=== PATIENT | male | born 2000 | race Hispanic/Latino ===

== ENCOUNTER 2019-12-31 08:22 | Emergency (ER) | payer OTHER, SELFPAY ==
[~2019-12-31 08:22] MED LIST: Azithromycin 250 MG TAB ONE
[2019-12-31] MEDS ORDERED: Gentamicin 80 MG/2 ML VIAL ONE (09:23)
[2019-12-31] MEDS ORDERED: Ibuprofen 800 MG TAB ONE (09:23)
[2019-12-31] MEDS ORDERED: Acetaminophen 500 MG TAB ONE (09:23)
[2019-12-31] MEDS ORDERED: Azithromycin 500 MG VIAL ONE (09:23)
[2019-12-31] MEDS ORDERED: Azithromycin 250 MG TAB ONE (09:24)
[2019-12-31 10:20] LABS: Bilirubin Negative (Negative); Blood, Urine Moderate (Negative); Clarity Slightly Cloudy (Clear); Glucose, Urine (Dipstick) Negative (Negative); Leukocyte Moderate (Negative); Nitrite Negative (Negative); Protein, Urine (Dipstick) Trace mg/dL (Neg-Trace); Urobilinogen 0.2 mg/dL (Less than 2)
[2019-12-31 10:23] LABS: Bacteria/HPF 2+ HPF (None Seen); WBC/HPF Greater Than 50 HPF (0-3)
== END 2019-12-31 10:07 | disposition home or self-care (01) ==
LOC: MADERS 08:22
DX: N34.1 Nonspecific urethritis (principal); J45.909 Unspecified asthma, uncomplicated
CPT/HCPCS: 81003; 81015; 96372; 99283; J0456; J1580

== ENCOUNTER 2020-01-30 12:51 | Emergency (ER) | payer SELFPAY, OTHER ==
[2020-01-30] MEDS ORDERED: cefTRIAXone\\ROCEPHIN 1 GM VIAL ONE (13:29)
[2020-01-30] MEDS ORDERED: Ibuprofen 800 MG TAB ONE (13:29)
[2020-01-30] MEDS ORDERED: Lidocaine 1% 20 ML MDV ONE (13:29)
== END 2020-01-30 14:05 | disposition home or self-care (01) ==
LOC: MADERS 12:51
DX: J02.0 Streptococcal pharyngitis (principal); J45.909 Unspecified asthma, uncomplicated
CPT/HCPCS: 96372; 99282; J0696; J2001